=== PATIENT | female | born 1985 | race Caucasian/White ===

== ENCOUNTER 2019-06-13 19:40 | Inpatient (IN) | payer OTHER ==
[2019-06-14 02:00] LABS: BASO % 0.2 % (0-2.0); EOS % 0.1 % (0-4.5); HEMATOCRIT 35.8 % (32.4-45.2); HEMOGLOBIN 12.1 GM/dL (10.7-15.3); LYMPH % 11.7 % (8-40); MCH 31.9 pg (25.7-33.7); MCHC 33.9 g/dl (32.0-36.0); MEAN CELL VOLUME 94.1 fl (80-96); PLATELET COUNT 141 K/MM3 (134-434); RDW 13.8 % (11.6-15.6); WHITE BLOOD COUNT 14.8 K/mm3 (4.0-10.0)
[2019-06-14 02:11] LABS: INR 0.97 (0.83-1.09); PROTHROMBIN TIME (PATIENT) 11.4 SEC (9.7-13.0)
[2019-06-14 02:13] LABS: ACTIVATED PTT 27.8 SECONDS (25.2-36.5)
[2019-06-14 02:17] LABS: BLOOD UREA NITROGEN 9.2 mg/dL (7-18); CALCIUM 8.8 mg/dL (8.5-10.1); CREATININE 0.7 mg/dL (0.55-1.3); POTASSIUM 3.9 mmol/L (3.5-5.1)
[2019-06-14] MEDS: ELECTROLYTE-148 SOLN 1,000 ML IV SCH (02:30)
[2019-06-14] MEDS ORDERED: PROMETHAZINE HCL 25 MG/1 ML VIAL ONE (03:50)
[2019-06-14] MEDS ORDERED: BUTORPHANOL TARTRATE 1 MG/ML VIAL ONE ×2 (03:50)
[2019-06-14 04:22] VITALS: BMI 25.0
[2019-06-14] MEDS ORDERED: AMPICILLIN - 2 GM in SODIUM CHLORIDE 100 ML IVPB ONE (04:22)
--- NOTE | 2019-06-14 04:22 | HP ---
Past Medical History - Admission History of Present Illness: 33 yo @ 40 0/7 wks by first trimester alessandro [facility] 06/14/2019 complicated by: 1. Late to care at 14 weeks Quad screen WNL 2. GBS positive - no PCN allergy Patient presents with chief complaint of contractions. She reports movement, denies leakage of fluid, vaginal bleeding. History Source: Patient, Caregiver Limitations to Obtaining History: No Limitations - Past Medical History Cardiovascular: No: HTN Pulmonary: No: Asthma ...: 1 ...Para: 0 ...Term: 0 ...: 0 ...Spon : 0 ...Induced : 0 ...LMP: 09/08/18 ... Weeks Gestation by Dates: 40 ...EDC by Dates: 06/14/19 - Past Surgical History Past Surgical History: Yes: Appendectomy Hx Myomectomy: No Hx Transabdominal Cerclage: No - Alcohol/Substance Use History of Substance Use: reports: None - Social History History of Recent Travel: No Home Medications - Allergies Allergies/Adverse Reactions: Allergies Allergy/AdvReac Type Severity Reaction Status Date / Time No Known Allergies Allergy Verified 06/13/19 20:28 - Home Medications Home Medications: Ambulatory Orders Vitamins (Sjr) - 1 tab PO DAILY 06/13/19 Family Medical History Family History: Denies Review of Systems - Review of Systems Constitutional: reports: No Symptoms Cardiovascular: reports: No Symptoms Respiratory: reports: No Symptoms Gastrointestinal: reports: No Symptoms Genitourinary: reports: No Symptoms Musculoskeletal: reports: No Symptoms Integumentary: reports: No Symptoms Neurological: reports: No Symptoms Hematology/Lymphatic: reports: No Symptoms Physical Exam - Maternity Vital Signs: Vital Signs Temperature 97.8 F 06/14/19 03:00 Pulse Rate 91 H 06/14/19 03:00 Respiratory Rate 20 06/14/19 03:00 Blood Pressure 119/81 06/14/19 03:00 O2 Sat by Pulse Oximetry (%) Constitutional: Yes: Well Nourished, No Distress, Calm Cardiovascular: Yes: Regular Rate and Rhythm Lungs: Clear to auscultation - Abdominal Exam/OB Number of Fetuses: Single Presentation: Vertex Contractions: Yes Regularity: Regular Heart Rate (range): 155 Category: I Accelerations: Non-Uniform Decelerations: None - Vaginal Exam/OB Dilatation (cm): 6 Effacement (%): 100 Amniotic Membrane Status: Ruptured Presentation: Vertex/Position Station: -2 - Physical Exam Edema: No ...Motor Strength: WNL Psychiatric: Yes: Alert, Oriented - Labs Lab Results: CBC, BMP 06/14/19 01:38 06/14/19 01:38 Most recent ultrasound: 05/27/2019 2858 g (6lb 5 oz, 30%ile) PNL: A positive, antibody negative, RPR NR; HIV negative; Varicella Immune; Rubella Immune; HbSag Neg; HCV neg; Hg Veena AA; Quad Screen WNL; 1 H GCT (86) WNL ; GBS positive Hemorrhage Risk Assessment - Risk Factors Medium Risk Factors: Yes: None High Risk Factors: Yes: None Risk Score: 1 Risk Level: Medium Risk Assessment/Plan 33 yo @ 40 wks active labor 1. Admit to L&D, consents reviewed and signed 2. Routine labs collected and sent 3. GBS positive, no penicillin allergy. Plan for Ampicillin per protocol 4. Category I FHT 5. Will proceed with expectant management, anticipate vaginal delivery.
[2019-06-14] MEDS ORDERED: AMPICILLIN SODIUM 2 GM VIAL ONE (04:23)
[2019-06-14] MEDS ORDERED: BUTORPHANOL TARTRATE 1 MG/ML VIAL IVPUSH ONE (04:33)
[2019-06-14] MEDS ORDERED: PROMETHAZINE HCL 25 MG/1 ML VIAL IVPUSH ONE (04:33)
--- NOTE | 2019-06-14 05:20 | PN ---
Ante-Partal Exam - Subjective Subjective: Patient reports pain with contractions Vital Signs: Vital Signs Temperature 97.8 F 06/14/19 03:00 Pulse Rate 91 H 06/14/19 03:00 Respiratory Rate 20 06/14/19 03:00 Blood Pressure 119/81 06/14/19 03:00 O2 Sat by Pulse Oximetry (%) Bleeding: No Headache: No Visual changes: No Right upper quadrant pain: No - Contractions Contractions: Yes Regularity: Regular Monitor Mode: External - Exam during Labor Heart Rate: 155 Variability: Moderate Category: I Monitor Decelerations: None Exam: Vaginal Dilatation (cm): 9 Effacement (%): 100 Amniotic Membrane Status: Ruptured Presentation: Vertex Station: -1 - Intrapartum Hemorrhage Risk Medium Risk Factors: None High Risk Factors: None Risk Score: 0 Risk Level: Low Risk - Assessment/Plan Assessment/Plan: 33 yo active labor, good cervical change 1. GBS positive 2. Category I FHT 3. adequate pain control 4. Will proceed with expectant management
[2019-06-14] MEDS ORDERED: OXYTOCIN 20 UNITS in 0.9% NS 20 UNIT/1,000 ML INFUS.BAG IV ONE (05:21)
[2019-06-14] MEDS ORDERED: LIDOCAINE HCL 1% PRESERVATIVE FREE - 30ML VIAL ONE (06:51)
--- NOTE | 2019-06-14 07:55 | PN ---
Delivery - Delivery Vaginal Delivery: No Problems Type of Anesthesia: Local Episiotomy/Laceration: Midline, 2nd degree EBL (cc): 300 Delivery, Single - Stages of Labor Date of Delivery: 06/14/19 Time of Delivery: 07:25 Date Placenta Delivered: 06/14/19 Time Placenta Delivered: 07:35 Placenta: Yes: Expressed - Condition of Gender: Male Position: Left, OA Total Hours ROM (Hrs/Mins): 3 hours, 20 minutes - 1 Minute Total Score: 9 5 Minutes Total Score: 9 - Feeding Plan Initial Plan: Exclusive throughout hospitalization Remarks - Remarks Remarks: Patient progressed to fully dilated and at 0725 via delivered a viable male infant in ALISON position over second degree episiotomy, APGARs 9,9. Weight and length unknown at this time. Head delivered spontaneously, nuchal cord noted shoulders and body delivered through without difficulty. with spontaneous cry and placed on mother's abdomen. Nose and mouth was bulb suctioned. Cord was clamped and cut. Perineum and vagina examined, a second degree episiotomy was noted and repaired in the usual fashion. Rectal exam revealed no sutures in rectum. Placenta was delivered spontaneously and intact. 20 units of pitocin in 1 L IVF was given. All counts correct x 2. Mother and infant stable in LDR. EBL 300cc.
[2019-06-14] MEDS ORDERED: BISACODYL 10 MG SUPP.RECT RC PRN (08:00)
[2019-06-14] MEDS ORDERED: WITCH HAZEL 50% (TUCKS) 40 PAD/JAR PAD TP PRN (08:00)
[2019-06-14] MEDS ORDERED: METHYLERGONOVINE MALEATE 0.2 MG/1 ML AMP IM PRN (08:00)
[2019-06-14] MEDS ORDERED: BENZOCAINE 28 GM HEMORRHOIDAL OINTMENT TP PRN (08:00)
[2019-06-14] MEDS ORDERED: ACETAMINOPHEN 325 MG TABLET (FP) PO PRN (08:00)
[2019-06-14] MEDS ORDERED: IBUPROFEN 600 MG TABLET (FP) PO PRN (08:00)
[2019-06-14] MEDS: AMPICILLIN - 1 GM in SODIUM CHLORIDE 100 ML IVPB SCH ×3 (09:10→16:27)
[2019-06-14] MEDS: BENZOCAINE 20% 57 GM BOTTLE TP PRN (11:24)
[2019-06-14] MEDS: OXYTOCIN 20 UNITS in 0.9% NS 20 UNIT/1,000 ML INFUS.BAG IV SCH (12:30)
--- NOTE | 2019-06-15 08:17 | PN ---
Post Progress Note - Subjective Subjective: Patient without acute complaints. Reports tolerating oral intake without nausea or vomiting. Ambulating without dizziness. Denies fevers or chills. Pain well controlled with oral pain medication. without difficulty. Passing flatus. Post Day: 1 Type of Delivery: Vital Signs: Vital Signs Temperature 98.8 F 06/15/19 05:04 Pulse Rate 67 06/15/19 05:04 Respiratory Rate 18 06/15/19 05:04 Blood Pressure 110/67 06/15/19 05:04 O2 Sat by Pulse Oximetry (%) Breast Exam: Yes: Soft Uterus: Yes: Fundus Firm, Fundus below umbilicus Abdomen/GI: Yes: Abdomen soft, Passing flatus, Tolerating PO. No: Abdominal Distention, Tender Lochia: Yes: Rubra Lochia, amount: Small Extremities: Yes: Calves non-tender. No: Edema Perineum: Yes: Episiotomy Activity: Ambulating - Labs Labs: CBC WBC 14.8 K/mm3 (4.0-10.0) H 06/14/19 01:38 RBC 3.80 M/mm3 (3.60-5.2) 06/14/19 01:38 Hgb 12.1 GM/dL (10.7-15.3) 06/14/19 01:38 Hct 35.8 % (32.4-45.2) 06/14/19 01:38 MCV 94.1 fl (80-96) 06/14/19 01:38 MCH 31.9 pg (25.7-33.7) 06/14/19 01:38 MCHC 33.9 g/dl (32.0-36.0) 06/14/19 01:38 RDW 13.8 % (11.6-15.6) 06/14/19 01:38 Plt Count 141 K/MM3 (134-434) 06/14/19 01:38 MPV 11.0 fl (7.5-11.1) 06/14/19 01:38 Absolute Neuts (auto) 12.1 K/mm3 (1.5-8.0) H 06/14/19 01:38 Neutrophils % 82.0 % (42.8-82.8) 06/14/19 01:38 Lymphocytes % 11.7 % (8-40) 06/14/19 01:38 Monocytes % 6.0 % (3.8-10.2) 06/14/19 01:38 Eosinophils % 0.1 % (0-4.5) 06/14/19 01:38 Basophils % 0.2 % (0-2.0) 06/14/19 01:38 Nucleated RBC % 0 % (0-0) 06/14/19 01:38 Assessment/Plan 33 yo PPD # 1 s/p , afebrile, vital signs stable, doing well 1. Continue routine care. 2. CBC without signs of anemia 3. Rh positive status, no rhogam indicated. 4. Encourage ambulation 5. Continue oral pain medication 6. Anticipate discharge home day #2
--- NOTE | 2019-06-15 08:19 | DS ---
Physical Exam-RISK AND INSURANCE CONSULTANT Vital Signs: Vital Signs Temperature 98.8 F 06/15/19 05:04 Pulse Rate 67 06/15/19 05:04 Respiratory Rate 18 06/15/19 05:04 Blood Pressure 110/67 06/15/19 05:04 O2 Sat by Pulse Oximetry (%) Labs: CBC, BMP 06/14/19 01:38 06/14/19 01:38 Delivery - Delivery Vaginal Delivery: No Problems Type of Anesthesia: Local Episiotomy/Laceration: Midline, 2nd degree EBL (cc): 300 Delivery, Single - Stages of Labor Date 1st Stage Initiatied: 06/13/19 Time 1st Stage Initiated: 22:00 Date 2nd Stage Initiated: 06/14/19 Time 2nd Stage Initiated: 06:00 Date of Delivery: 06/14/19 Time of Delivery: 07:25 Time Placenta Delivered: 07:35 Placenta: Yes: Expressed - Condition of Mold Builder/Accounting Administrator Present: No Infant Gender: Male Weight: 7 lb 4 oz Position: Left, OA Total Hours ROM (Hrs/Mins): 3 hours, 20 minutes - 1 Minute Total Score: 9 5 Minutes Total Score: 9 - [place] Feeding Plan Initial Plan: Exclusive throughout hospitalization Discharge Summary Problems reviewed: Yes Reason For Visit: LABOR ADMIT Current Active Problems Vaginal delivery (Acute) Procedures: Principal: Vaginal Delivery Hospital Course: Patient was admitted in active labor, progressed to deliver a viable male via . PPD # 1 patient ambulated, voiding, passing gas, tolerating oral intake and with adequate pain control. She fulfilled all criteria for discharge PPD #2 Goals: RETURN WHEN CONTRACTIONS WORSEN, WATER BREAKING , AND VAGINAL BLEEDING. WATCH FOR DECREASED MOVEMENT. DISCUSSED NUTRITION AND HYDRATION REST AND RELAXATION COMFORT MEASURES. DISCHARGED HOME WITH STABLE AND UNDELIVERED. /HSY RN Condition: Good - Instructions Diet, Activity, Other Instructions: Physical activity Resume your normal everyday activity as tolerated no heavy lifting or exercise until seen by your surgeon. You may walk unlimited marisa of and climb stairs. You may resume driving the car when you feel safe and comfortable behind the wheel. No sexual activity as instructed. Diet There are no dietary restrictions. Eat healthy, high-fiber foods. Drink 6 to 8 glasses of liquid each day. This will assist in keeping your bowels are regular. Pain management You may take Tylenol or acetaminophen or Ibuprofen (for example, Motrin, Advil etc.) for moderate to severe pain. Call MD for any of the following: Severe pain not relieved by medication Fever of 101 or higher Excessive bleeding or drainage on dressing Inability to urinate Referrals: Justo Hazel MD [Staff Physician] - Disposition: HOME - Home Medications Comprehensive Discharge Medication List: Ambulatory Orders Vitamins (Sjr) - 1 tab PO DAILY 06/13/19 Prescription Drug Monitoring Program (I-STOP) results: I-STOP not reviewed
[2019-06-15 09:31] LABS: BASO % 0.3 % (0-2.0); EOS % 0.6 % (0-4.5); HEMATOCRIT 32.2 % (32.4-45.2); HEMOGLOBIN 10.7 GM/dL (10.7-15.3); LYMPH % 19.2 % (8-40); MCH 31.6 pg (25.7-33.7); MCHC 33.4 g/dl (32.0-36.0); MEAN CELL VOLUME 94.8 fl (80-96); MEAN PLT VOLUME 9.8 fl (7.5-11.1); MONO % 6.1 % (3.8-10.2); NEUT % 73.8 % (42.8-82.8); PLATELET COUNT 143 K/MM3 (134-434); RDW 14.2 % (11.6-15.6); WHITE BLOOD COUNT 12.5 K/mm3 (4.0-10.0)
[2019-06-15] MEDS: OXYTOCIN 20 UNITS in 0.9% NS 20 UNIT/1,000 ML INFUS.BAG IV SCH (18:58)
[2019-06-15] MEDS: ELECTROLYTE-148 SOLN 1,000 ML IV SCH (18:59)
[2019-06-15] MEDS ORDERED: SENNOSIDES/DOCUSATE COMBO (SENNA PLUS) TABLET (UD) PO PRN (22:00)
[2019-06-16] MEDS: BENZOCAINE 20% 57 GM BOTTLE TP PRN (08:45)
[2019-06-16 09:58] VITALS: BP 121/88; PULSE 101; TEMP 98
--- NOTE | 2019-06-16 10:32 | PN ---
Post Progress Note - Subjective Subjective: Patient without acute complaints. Reports tolerating oral intake without nausea or vomiting. Ambulating without dizziness. Denies fevers or chills. Pain well controlled with oral pain medication. without difficulty. Passing flatus. Post Day: 2 Type of Delivery: Vital Signs: Vital Signs Temperature 98.0 F 06/16/19 09:00 Pulse Rate 101 H 06/16/19 09:00 Respiratory Rate 18 06/16/19 09:00 Blood Pressure 121/88 06/16/19 09:00 O2 Sat by Pulse Oximetry (%) Breast Exam: Yes: Soft Uterus: Yes: Fundus Firm Abdomen/GI: Yes: Abdomen soft, Passing flatus, Tolerating PO. No: Abdominal Distention, Tender Lochia: Yes: Rubra Lochia, amount: Small Extremities: Yes: Calves non-tender. No: Edema Perineum: Yes: Episiotomy Activity: Ambulating - Labs Labs: CBC WBC 12.5 K/mm3 (4.0-10.0) H 06/15/19 08:50 RBC 3.40 M/mm3 (3.60-5.2) L 06/15/19 08:50 Hgb 10.7 GM/dL (10.7-15.3) 06/15/19 08:50 Hct 32.2 % (32.4-45.2) L 06/15/19 08:50 MCV 94.8 fl (80-96) 06/15/19 08:50 MCH 31.6 pg (25.7-33.7) 06/15/19 08:50 MCHC 33.4 g/dl (32.0-36.0) 06/15/19 08:50 RDW 14.2 % (11.6-15.6) 06/15/19 08:50 Plt Count 143 K/MM3 (134-434) 06/15/19 08:50 MPV 9.8 fl (7.5-11.1) D 06/15/19 08:50 Absolute Neuts (auto) 9.3 K/mm3 (1.5-8.0) H 06/15/19 08:50 Neutrophils % 73.8 % (42.8-82.8) 06/15/19 08:50 Lymphocytes % 19.2 % (8-40) D 06/15/19 08:50 Monocytes % 6.1 % (3.8-10.2) 06/15/19 08:50 Eosinophils % 0.6 % (0-4.5) D 06/15/19 08:50 Basophils % 0.3 % (0-2.0) 06/15/19 08:50 Nucleated RBC % 0 % (0-0) 06/15/19 08:50 Assessment/Plan 33 yo PPD # 2 s/p , afebrile, vital signs stable, doing well 1. Patient stable for discharge home today. 2. Patient encouraged to contact MD for: - Severe pain not controlled by oral pain medication - Fevers or chills - Nausea or vomiting, intolerance of oral intake 3. Patient to follow up in office in 4-6 weeks for visit
== END 2019-06-16 12:00 | disposition home or self-care (01) | DRG 560 ==
LOC: JDEL 19:40 → JLDR 06-14 01:30 → J3W 06-14 09:00
PROVIDERS: ADMIT Obstetrics & Gynecology; ATTEND Obstetrics & Gynecology
PROC: 10E0XZZ Delivery of Products of Conception, External Approach (ICD-10-PCS; principal; 2019-06-14)
PROC: 0KQM0ZZ Repair Perineum Muscle, Open Approach (ICD-10-PCS; 2019-06-14)
PROC: 0W8NXZZ Division of Female Perineum, External Approach (ICD-10-PCS; 2019-06-14)
DX: O70.1 Second degree perineal laceration during delivery (principal); Z3A.40 40 weeks gestation of pregnancy; Z22.330 Carrier of Group B streptococcus; Z37.0 Single live birth
CPT/HCPCS: 36415; 59409; 80048; 85025; 85610; 85730; 86593; 86850; 86900; 86901; 87389